=== PATIENT | male | born 2000 | race Two or more races ===

== ENCOUNTER 2020-12-09 04:52 | Emergency (ER) | payer OTHER ==
[~2020-12-09] VITALS: Ht 167.6 cm; Wt 67.6 kg
[2020-12-09] MEDS ORDERED: LEVOTHYROXINE25 MCG (05:05)
[2020-12-09] MEDS ORDERED: NORFLEX100MG PO (05:31)
[2020-12-09] MEDS ORDERED: DICLOFENAC SODI75 MG PO (05:31)
== END 2020-12-09 05:51 | disposition home or self-care (01) ==
LOC: ER 04:52
DX: S13.4XXA Sprain of ligaments of cervical spine, initial encounter (principal); S40.012A Contusion of left shoulder, initial encounter; S30.0XXA Contusion of lower back and pelvis, initial encounter; V49.9XXA Car occupant (driver) (passenger) injured in unspecified traffic accident, initial encounter; Y93.89 Activity, other specified; Y92.488 Other paved roadways as the place of occurrence of the external cause; Y99.8 Other external cause status

== ENCOUNTER 2020-12-28 08:00 | Outpatient (CLI) | payer OTHER ==
[~2020-12-28 08:00] MED LIST: DICLOFENAC SODI75 MG PO; LEVOTHYROXINE25 MCG; NORFLEX100MG PO
== END 2020-12-28 08:30 | disposition home or self-care (01) ==
LOC: PPH VACUNA 08:00
DX: Z23 Encounter for immunization (principal)

== ENCOUNTER → 2021-01-18 15:00 | Outpatient (CLI) | payer OTHER | END | disposition home or self-care (01) | LOC: PPH VACUNA 15:00 | DX: Z23 Encounter for immunization (principal) ==